=== PATIENT | male | born 1935 | race Caucasian/White ===

== ENCOUNTER 2016-06-27 16:47 | Emergency (ER) | payer OTHER ==
--- NOTE | 2016-06-27 18:00 | ED ---
Lower Extremity - HPI Summary HPI Summary: 80 yr old male with the complaint of left foot pain for 10 days with swelling and now he has pulling and discomfort in his left calf. He feels the entire leg is more swollen. He denies SOB, CP. Denies fever or chills. - History of Current Complaint Stated Complaint: LT FOOT PAIN Time Seen by Provider: 06/27/16 17:43 PMH/Surg Hx/FS Hx/Imm Hx Previously Healthy: Yes - Family History Known Family History: Positive: Cardiac Disease - Social History Occupation: Retired Alcohol Use: Rare Smoking Status (MU): Never Smoked Tobacco Review of Systems Constitutional: Negative Eyes: Negative Cardiovascular: Negative Respiratory: Negative Positive: Edema - left leg swelling, Other - discomfort left foot, leg Neurological: Negative All Other Systems Reviewed And Are Negative: Yes Physical Exam Triage Information Reviewed: Yes Vital Signs Reviewed: Yes Appearance: Positive: Well-Appearing, No Pain Distress Skin: Positive: Warm Head/Face: Positive: Normal Head/Face Inspection Eyes: Positive: Normal Respiratory/Lung Sounds: Positive: Clear to Auscultation, Breath Sounds Present Cardiovascular: Positive: Normal, RRR. Negative: Murmur Abdomen Description: Positive: Nontender Musculoskeletal: Positive: Normal, Strength/ROM Intact, Edema Left, Other - no redness or tenderness on palpation, but he has edema to the foot ankle and he states his left calf is a little swollen compare to other days. He has good DP and PT pulses. Neurological: Positive: Normal Psychiatric: Positive: Normal - [place] Coma Scale Best Eye Response: 4 - Spontaneous Best Motor Response: 6 - Obeys Commands Best Verbal Response: 5 - Oriented Lower Extremity Course/Dx - Course Course Of Treatment: 80 yr old male with the complaint of left calf pain following a week or so of left foot, heel pain and swelling. [facility] and they will see. Patient refused ambulance transport - Diagnoses Provider Diagnoses: Foot pain, left, Leg pain Discharge - Discharge Plan Condition: Good Disposition: [facility] CARE FAC
[2016-06-27 18:03] VITALS: BP 149/98
== END 2016-06-27 18:09 | disposition left against medical advice (07) ==
LOC: UCCORT 16:47
DX: M79.672 Pain in left foot (principal); M79.605 Pain in left leg
CPT/HCPCS: 99202; G0463